=== PATIENT | female | born 1955 | race Caucasian/White ===

== ENCOUNTER 2020-06-03 06:44 | Outpatient (NON) | payer OTHER, SELFPAY ==
[2020-06-04 21:18] LABS: SARS-CoV-2 RNA PCR Positive
== END 2020-06-03 06:45 ==
PROVIDERS: PCP Internal Medicine; Visit Provider Internal Medicine
DX: U07.1 COVID-19 (principal)
CPT/HCPCS: 87635; C9803; U0003

== ENCOUNTER → 2023-03-11 09:44 | Outpatient (CLI) | payer MEDICARE, OTHER, SELFPAY ==
--- NOTE | ~2023-03-11 | CT_ITS ---
EXAMINATION: CT abdomen pelvis wo con DATE: 03/11/2023 09:58 INDICATION: Flank pain, history of breast cancer TECHNIQUE: Computed tomography (CT) of the abdomen and pelvis was performed without intravenous contr ast. The dose-length product (DLP) was 989.47 mGy-cm. Automated exposure control and iterative recons truction technique were employed. COMPARISON: 09/02/2016 FINDINGS: Minimal dependent atelectasis is present in the lung bases. The heart size is normal. Barrera es of cholecystectomy are noted. The liver, spleen, pancreas, and adrenal glands are normal. There is a 9 mm nonobstructing stone of the right kidney lower pole. There is a 2 mm nonobstructing stone of the left kidney lower pole. No stones are identified in the ureters or bladder. No hydronephrosis or hydroureter. No pathologically enlarged abdominal or pelvic lymph nodes are identified. No free intra peritoneal gas or evidence of bowel obstruction. The appendix is normal. There is mild lumbar spondyl osis. There is a small umbilical hernia containing fat. IMPRESSION: 1. Nonobstructing bilateral nephrolithiasis. Reviewed, dictated and finalized at location L.
== END ==
PROVIDERS: PCP Family Medicine; Visit Provider Family Medicine
DX: N20.0 Calculus of kidney (principal)
CPT/HCPCS: 74176